=== PATIENT | female | born 1995 | race Hispanic/Latino ===

== ENCOUNTER 2024-11-08 16:07 | Emergency (ER) | payer SELFPAY ==
[~2024-11-08] VITALS: Ht 160 cm; Wt 64.4 kg
[2024-11-08 18:22] VITALS: BP 105/63; PULSE 95; RESP 16; TEMP 98.6; O2SAT 99
[2024-11-08] MEDS: DiphenhydrAMINE HCL 50 MG/ML VIAL IV ONE (18:22)
[2024-11-08] MEDS ORDERED: PERM60CR4 TP (18:35)
--- NOTE | 2024-11-08 18:35 | ERN ---
General Chief Complaint: Allergic Reaction Stated Complaint: ALLERGIC REACTION Time Seen by MD: 16:12 Time Seen by Midlevel: 16:12 Source: patient History of Present Illness Initial Comments Patient is a 29-year-old female presenting to the emergency department for evaluation of possible scabies. She had already been previously diagnosed with scabies in her apartment has been fumigated for scabies. She presents with lesions to her lower extremities with associated itchiness. Allergies: Coded Allergies: No Known Drug Allergies (Unverified Allergy, Unknown, 11/08/24) Past Medical History Past Medical History: No Pertinent History Past Surgical History: None ROS Dictation CONSTITUTIONAL: Negative except for HPI HEAD/FACE: Negative except for HPI EENT: Negative except for HPI RESPIRATORY: Negative except for HPI GASTROINTESTINAL/ABDOMINAL: Negative except for HPI GENITOURINARY: Negative except for HPI MUSCULOSKELETAL: Negative except for HPI INTEGUMENTARY: Negative except for HPI NEUROLOGICAL/PSYCH: Negative except for HPI HEMATOLOGIC/LYMPHATIC: Negative except for HPI All Systems Negative, Except as noted above. 13 point review of systems assessed and all negative except for above. Physical Exam Physical Exam Dictation Vital Signs reviewed General Appearance: Alert, oriented x 3, no acute distress, well developed, nourished. Head and Face: non-traumatic. Eyes: PERRL, pink conjunctivas, eyelid no trauma, anterior chamber with arcus senilis. Ears: Pinnas intact and no signs of trauma or erythema ear canals clear and no discharge TM no erythema Nose: No discharge, no bleeding. Oropharynx: Mouth normal, tongue pink, pharynx clear,no erythema, tonsils no exudates, no abscesses noted, mucous membrane moist Neck: Supple, non-tender, no thyromegaly, no masses, no JVD, no bruits Breast:Deferred Chest:No tenderness, no crepitus, no paradoxical movement, no retractions Lungs:Clear, well-ventilated, symmetric, no rales, no wheezing, no rhonchi, no stridor, good breath sounds bilaterally Heart: Regular rate, regular rhythm, no murmur, no gallops Vascular: no peripheral edema, Abdomen: Soft, positive bowel sounds, nondistended, no guarding, nontender, no rebound, no masses no hepatomegaly, no splenomegaly, no Painetr's sign, no hernias. Rectal: Deferred Genital: Deferred Neurological: Normal speech, motor function intact, sensory function intact Musculoskeletal: Neck nontender, full range of motion, back nontender, full range of motion, Extremities: nontender, full range of motion Skin: Pruritic papular rash with excoriations and characteristic burrows predominantly involving lower extremities consistent with scabies infestation Lymphatic: Deferred MDM MDM: Differential diagnosis: Acute allergic reaction, insect bites, scabies There are no social concerns with this patient. Prescription drug management Prescriptions will include: Permethrin Medical management and examination interpretation discussions were had by me wi th other qualified healthcare professionals as indicated for the patient's care. ED Course Orders Procedure Category Date Status Time Diphenhydramine Hcl PHA 11/08/24 In Process (Benadryl Inj) 18:30 Current Medications Medications (Trade) Dose Ordered Sig/Lobito Route PRN Reason Start Time Stop Time Status Last Admin Dose Admin Diphenhydramine HCl (BENAdryl INJ) 25 mg ONCE ONCE IV 11/08/24 18:30 11/08/24 18:31 Vital Signs Date Time Temp Pulse Resp B/P (MAP) Pulse Ox O2 Delivery O2 Flow Rate FiO2 11/08/24 16:15 98.6 104 17 101/62 99 Room Air 0 DX & DISP Disposition: Discharge Departure Impression: Primary Impression: Scabies Condition: Stable Scripts Permethrin (Permethrin) 5 % Cream..g. 1 APPL TP ONCE for 1 Day, #60 GM 1 Refill massage into skin from head to soles of feet one time, leave on for 8-14 hours then remove by thorough washing Prov: DAWN MCDOWELL 11/08/24 Additional Instructions: Your physical examination is consistent with scabies. I have given you a prescription for permethrin. Please apply from the neck down throughout your entire body and leave for 6-8 hours. You may then shower and reapply this in 1- 2 weeks. Time of Disposition: 18:33 I have reviewed the case, and I agree with, Diagnosis and Plan I performed the substantive portion of the visit. I have reviewed and personally made and approve the management plan that is documented in the note by myself or the LUIZ. I acknowledge for responsibility for the patient's management plan. DAWN MCDOWELL November 08, 2024 18:35
== END 2024-11-08 18:40 | disposition home or self-care (01) ==
LOC: EDH 16:07
DX: B86 Scabies (principal)
CPT/HCPCS: 99283; 96374; J1200

== ENCOUNTER 2024-11-10 16:41 | Emergency (ER) | payer SELFPAY ==
[~2024-11-10] VITALS: Ht 157.5 cm; Wt 64.4 kg
[~2024-11-10 16:41] MED LIST: PERM60CR4 TP
--- NOTE | 2024-11-10 17:39 | ERN ---
ED Note History of Present Illness Stated Complaint: SCABIES Chief Complaint: Skin Rash/Abscess Time Seen by MD: 17:06 Time Seen by Midlevel: 17:06 Dictation: The patient is a 29-year-old female with no significant past medical history who presents to the emergency department with complaints of itchiness and rash. Patient reports she was diagnosed with scabies two days ago. Reports that there is an infestation in her apartment complex. Patient reports that she finished her treatment. Patient also reports nontraumatic swelling to her right foot where the scabies is predominantly. Allergies: Coded Allergies: No Known Drug Allergies (Unverified Allergy, Unknown, 11/08/24) Home Meds Active Scripts Permethrin (Permethrin) 5 % Cream..g., 1 APPL TP ONCE for 1 Day, #60 GM 1 Refill massage into skin from head to soles of feet one time, leave on for 8-14 hours then remove by thorough washing Prov:DAWN MCDOWELL 11/08/24 Past Medical History Past Medical History: No Pertinent History Surgical History: None RN Note Reviewed/Agreed w/PFSH: Yes Review of System Dictation Constitutional: Negative for fever,chills, and weight loss Eyes: Negative for injury, pain,redness, and discharge ENT: Negative for injury,pain or swelling Cardiovascular: Negative for chest pain, palpitations, and edema Respiratory: Negative for shortness of breath, cough, and wheezing, Abdomen/GI: Negative for abdominal pain, nausea, vomiting, diarrhea, and constipation Back: Negative for injury and pain : Negative for injury, bleeding and discharge MS/Extremity: Negative for injury and deformity Skin: Negative for discoloration positive for rash Neuro: Negative for headache, weakness, numbness, tingling, and seizure Psych: Negative for suicide ideation, homicidal ideation, and hallucinations Initial Vital Sign VS Vital Signs Date Time Temp Pulse Resp B/P (MAP) Pulse Ox O2 Delivery O2 Flow Rate FiO2 11/10/24 17:27 98.1 87 18 120/79 Room Air 0 Physical Exam Dictation Vital Signs reviewed General Appearance: Alert, oriented x 3, no acute distress, well developed, nourished. Head and Face: non-traumatic. Eyes: PERRL, pink conjunctivas, eyelid no trauma, anterior chamber with arcus senilis. Ears: Pinnas intact and no signs of trauma or erythema ear canals clear and no discharge TM no erythema Nose: No discharge, no bleeding. Oropharynx: Mouth normal, tongue pink. pharynx clear,no erythema, tonsils no exudates, no abscesses noted, mucous membrane moist Neck: Supple, non-tender, no thyromegaly, no masses, no JVD, no bruits Breast:Deferred Chest:No tenderness, no crepitus, no paradoxical movement, no retractions Lungs:Clear, well-ventilated, symmetric, no rales, no wheezing, no rhonchi, no stridor, good breath sounds bilaterally Heart: Regular rate, regular rhythm, no murmur, no gallops Vascular: no peripheral edema, dorsalis pedis 3+ bilaterally Abdomen: Soft, positive bowel sounds, nondistended, no guarding, nontender, no rebound, no masses no hepatomegaly, no splenomegaly, no Painter's sign, no hernias. Rectal: Deferred Genital: Deferred Neurological: Normal speech, motor function intact, sensory function intact Musculoskeletal: Neck nontender, full range of motion, back nontender, full range of motion, Extremities: nontender, full range of motion full range of motion to foot, no swelling, no open wounds, cap refill less than 3 seconds Skin: Color pink, dry, no turgor, no rash, no lacerations, no abrasions, no cont usions. Rash noted to bilateral lower extremities, small red bumps Lymphatic: Deferred Results (Laboratory/Radiology) Labs Reviewed?: Yes ED Course ED Course Vital Signs Date Time Temp Pulse Resp B/P (MAP) Pulse Ox O2 Delivery O2 Flow Rate FiO2 11/10/24 17:27 98.1 87 18 120/79 Room Air 0 Medical Decision Making MDM The patient is a 29-year-old female with no significant past medical history who presents to the emergency department with complaints of itchiness and rash. Patient reports she was diagnosed with scabies two days ago. Reports that there is an infestation in her apartment complex. Patient reports that she finished her treatment. Patient also reports nontraumatic swelling to her right foot where the scabies is predominantly. Patient with no swelling to right foot, neurovascularly intact. Good pulses. No signs of trauma., no open wounds or contusions. Patient instructed to repeat her dose of permethrin in 14 days after the first one. Patients children also present today with evaluation on scabies. Mother educated on the importance of washing sheets and treatment of everyone at home to avoid any recontamination. Patient in no acute distress. Stable vital signs. instructed to follow up with PCP. Differential diagnosis: Scabies, allergic reaction, contact dermatitis Need for hospitalization: Patient does not meet criteria for hospitalization. There are no social concerns with this patient. DX & DISP Disposition: Discharge Departure Impression: Primary Impression: Scabies Condition: Stable Additional Instructions: reapply the permethrin 14 days after your first dose. Wash all clothes used in the last last 4-5 days in hot water. Dry them in hot heat. If a child is getting treated wash their stuffed animals and soft toys. Wash sheets or blankets any bedding clothing. If you cannot wash or dry bedsheets placed them in plastic bags for 3 days. FOLLOW-UP WITH PRIMARY CARE PROVIDER IN 1 TO 2 DAYS. TAKE MEDICATIONS DIRECTED HERE IN THE EMERGENCY ROOM. OKAY TO CONTINUE HOME MEDICATIONS UNLESS OTHERWISE DISCUSSED DURING YOUR VISIT IN THE EMERGENCY ROOM TODAY. RETURN TO YOUR NEAREST EMERGENCY ROOM IF SYMPTOMS WORSEN OR IF THERE IS NO IMPROVEMENT. CALL 911 IF YOU NEED IMMEDIATE ASSISTANCE. TAKE TYLENOL OR MOTRIN [id number] NEEDED AND IF NO CONTRAINDICATIONS ARE PRESENT. INCREASE ORAL HYDRATION. A WOUND CULTURE OR URINE CULTURE WAS ORDERED HERE IN THE EMERGENCY ROOM DEPARTMENT PLEASE FOLLOW-UP WITH PRIMARY CARE PROVIDER AND ADVISE THEM TO GET REPEAT PORTS FROM OUR FACILITY. IF YOU HAD ANY [place]WRENCE WRAP/SPLINTS THAT WERE APPLIED HERE, PLEASE DO NOT REMOVE THEM UNTIL YOU SEE YOUR PRIMARY CARE OR SPECIALTY. Referrals: SELF,REFERRAL (PCP) Time of Disposition: 17:35 I have reviewed the case, and I agree with, Diagnosis and Plan [facility] November 10, 2024 17:38
[2024-11-10 18:23] VITALS: BP 115/68; PULSE 71; RESP 16; TEMP 98; O2SAT 99
== END 2024-11-10 18:24 | disposition home or self-care (01) ==
LOC: EDH 16:41
DX: B86 Scabies (principal)
CPT/HCPCS: 99283